=== PATIENT | female | born 1985 ===

== ENCOUNTER 2017-05-06 19:16 | Emergency (ER) | payer MEDICAID, OTHER ==
[2017-05-06 19:53] VITALS: BMI 35.6
[2017-05-06 21:21] LABS: SQUAMOUS EPITHIAL 16 /hpf (0-5); URINE BACTERIA RARE (<OCC); URINE BILIRUBIN NEGATIVE (NEGATIVE); URINE BLOOD NEGATIVE (NEGATIVE); URINE CLARITY CLOUDY (Clear); URINE COLOR YELLOW (YELLOW); URINE GLUCOSE (UA) NEG (Normal); URINE LEUKOCYTE ESTERASE SMALL Leu/uL (Negative); URINE PROTEIN NEGATIVE (NEGATIVE); URINE UROBILINOGEN 0.2-1.0 mg/dL (0.2-1.0)
[2017-05-07 02:40] VITALS: BP 102/57; PULSE 87; RESP 18; TEMP 97.8; O2SAT 100
--- NOTE | 2017-05-07 10:22 | OBHP ---
Datetime: 05/06/2017 20:57 IP Adm Impression: , intrauterine ; No Active Labor IP Chief Complaint Other: lower back pain IP Admit Plan: Observation/Evaluation; Discharge home Admit Comment, IP Provider: 31 yo at 26.1 weeks GA, EDC 08/11/17 based on LMP 11/04/16, c/w fir st trimester US presents to [facility] with c/o of right sided lower back pain since last night. Pt reports at home back pain was 9/10 in intensity but now its 2/10. Pt took tylenol 325 mg last night at 1 am with good relief. Denies any injury to back. Denies dysuria, hematuria, nausea, vomiting,fever or chi lls. Has hx pyelonephritis at age 18. Denies hx kidney stone. Pt reports +FM. Denies ctx, abdominal p ain, LOF or VB. 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 Plan: Continue heart monitor UA re-evaluate UA shows neg for blood, nitrate, protein. Has small leukocytes and urine microscopic wbc 7. Pt moreno s not have any symptoms of UTI. NST is re-assuring. Pt is stable to discharge home. ED precaution giv en. amos [id number] Case d/w on-call OB Hospitalist Dr. Donato Attending Note: Pt was seen and reviewed with the resident. Exam findings consistent with low back pain. Pt asked to ask partner to massage the back for addit ional relief. She was asked to return to the ER if pain persists. Extremities - PN: Normal Abdomen - PN: Normal Lungs - PN: Normal Heart - PN: Normal Neurologic - PN: Normal HEENT - PN: Normal General - PN: Normal FHR - Baseline A Provider: 130 Comments, ACOG Physical Exam: Abdomen: +BS, soft, gravid abdomen, non tender. No suprapubic tenderne ss. No CVA tenderness B/L. SVE: closed/thick/high EGA AdmitDate IP: 26.1 IP Chief Complaint: Maternal discomfort NICHD Variability Prov Fetus A: Moderate 6-25bpm NICHD Accel Fetus A IP Provider: [id number] FHR Category Provider Fetus A: Category I NICHD Decel Fetus A IP Provider: None
== END 2017-05-06 22:00 | disposition home or self-care (01) ==
LOC: H.EROB2 19:16
DX: O26.92 Pregnancy related conditions, unspecified, second trimester (principal); M54.5 Low back pain; Z3A.26 26 weeks gestation of pregnancy